=== PATIENT | female | born 1980 | race Caucasian/White ===

== ENCOUNTER 2019-02-24 18:48 | Emergency (ER) | payer SELFPAY ==
[~2019-02-24] VITALS: Ht 162.6 cm; Wt 88.6 kg
[~2019-02-24 18:48] MED LIST: ATARAX 25 MG TA25 MG PO; ATIVAN1 MG PO; BENADRYL50 MG PO; BREO ELLIPTA 11 EACH INH; CHERATUSSIN AC473 ML PO; CYCLOBENZAPRINE5 MG PO; DOXYCYCLINE HY100 M2 PO; HYDROCODONE-APA1 TAB PO; MUCINEX600 MG PO; PRILOSEC20 MG PO; PROVENTIL HFA6.7 GM INH; STERAPRED DS 1010 MG PO; STERAPRED DS 1210 MG PO; ULTRAM50 MG PO; ZANTAC150 MG PO; ZITHROMAX 500M500 MG PO; ZITHROMAX500 MG PO; ZOFRAN4 MG PO; ZOLOFT50 MG PO
[2019-02-24 18:52] VITALS: Ht 162.6 cm; Wt 88.6 kg
[2019-02-24] MEDS ORDERED: BENADRYL25 MG PO (18:54)
[2019-02-24] MEDS ORDERED: CETIRIZINE HCL5 MG (18:54)
[2019-02-24] MEDS ORDERED: ZOLOFT25 MG PO (20:28)
[2019-02-24] MEDS ORDERED: VISTARIL50 MG PO (20:28)
[2019-02-24 21:05] VITALS: BP 102/51
== END 2019-02-24 21:05 | disposition home or self-care (01) ==
LOC: D.ER 18:48
DX: F41.0 Panic disorder [episodic paroxysmal anxiety] (principal)